=== PATIENT | male | born 1950 | race Caucasian/White ===

== ENCOUNTER 2021-11-01 07:20 | Day surgery (SDC) | payer OTHER ==
[2021-10-25 14:35] LABS: BASOPHILS # (AUTO) 0.1 X10'3 (0-0.2); BASOPHILS % (AUTO) 0.8 % (0-1); EOSINOPHILS # (AUTO) 0.3 X10'3 (0-0.9); EOSINOPHILS % (AUTO) 3.7 % (0-6); LYMPHOCYTES # (AUTO) 1.3 X10'3 (1.1-4.8); LYMPHOCYTES % (AUTO) 14.7 % (21-51); MEAN CORPUSCULAR HEMOGLOBIN 29.9 PG (27.0-31.0); MEAN CORPUSCULAR VOLUME 85.5 FL (78-98); MEAN PLATELET VOLUME 7.8 FL (7.4-10.4); MONOCYTES # (AUTO) 1.2 X10'3 (0-0.9); MONOCYTES % (AUTO) 13.9 % (2-12); NEUTROPHILS # (AUTO) 5.7 X10'3 (1.8-7.7); NEUTROPHILS % (AUTO) 66.9 % (42-75); PRE OP HEMATOCRIT 40.4 % (42.0-52.0); PRE OP HEMOGLOBIN 14.2 g/dL (14.0-17.9); PRE OP PLATELET COUNT 220 X10'3 (140-440); RED BLOOD COUNT 4.73 X10'6 (4.70-6.10)
[2021-10-25 14:53] LABS: ALBUMIN 3.1 G/DL (3.4-5.0); ALBUMIN/GLOBULIN RATIO 0.9 (1.1-1.5); ALKALINE PHOSPHATASE 110 IU/L (46-116); BLOOD UREA NITROGEN 10 MG/DL (7-18); BUN/CREATININE RATIO 13.2 (5.4-32.0); CALCIUM 8.8 MG/DL (8.5-10.1); CHLORIDE 104 MMOL/L (99-107); CREATININE 0.76 MG/DL (0.60-1.10); PRE OP ALT 30 U/L (30-65); PRE OP ANION GAP 6 (8-16); PRE OP AST 14 U/L (10-37); PRE OP BILIRUB, TOTAL 0.5 MG/DL (0.0-1.0); PRE OP GLUCOSE 83 MG/DL (70-104); PRE OP POTASSIUM 3.8 MMOL/L (3.4-5.1); PRE OP SODIUM 139 MMOL/L (135-145); TOTAL CARBON DIOXIDE 29.1 MMOL/L (24-32); TOTAL PROTEIN 6.6 G/DL (6.4-8.2); eGFR > 90 ML/MIN
[2021-11-01] VITALS (16 sets, daily range): BP systolic 97–152; BP diastolic 60–82
[~2021-11-01] VITALS: Ht 172.7 cm; Wt 110.6 kg
[2021-11-01] MEDS: potassium cl 20mEq in 1/2 NS 1,000 ML IV SCH ×2 (07:15→15:15)
[~2021-11-01 07:20] MED LIST: ATOR20TA66 PO; BUPR200T27 PO; CHOL200052 PO; HYDROmorphone 1 mg/ml syringe IV PRN; HYDROmorphone inj. 0.5 MG/0.5 ML DISP.SYRIN IV PRN; LORA10TA7 PO; acetaminophen 325mg tablet PO ONE; acetaminophen 325mg tablet PO PRN; bisacodyl 10mg suppository rectal RC PRN; cefazolin/dext.iso 2gm/50ml IV ONE; celeCOXIB 100mg capsule PO ONE; diphenhydrAMINE 25mg capsule PO PRN; famotidine 20mg tablet PO ONE; gabapentin 300mg capsule PO ONE; magnesium hydroxide 30ml (MOM) UD suspension PO PRN; metoclopramide 5 mg/ml inj IV ONE; ondansetron/PF 4mg/2ml inj IV PRN; oxyCODONE SR 10mg (sust. release) tab -2 tabs (20mg) PO ONE; oxyCODONE/APAP 10/325mg tablet PO PRN; tranexamic acid inj. 0 MG in normal saline 100ml IV soln 100 ML IV ONE; tranexamic acid inj. 1,000 MG in 0.7% saline 100 ML PMX IV ONE; vancomycin 1,500 MG in NS 300ml IV soln IV ONE
[2021-11-01] MEDS: ringers solution, lacted 1,000 ML IV SCH ×2 (08:28→14:39)
[2021-11-01] MEDS ORDERED: LOSA25TA96 PO (08:30)
[2021-11-01] MEDS ORDERED: vancomycin 1,000mg inj ONE (10:52)
[2021-11-01] MEDS ORDERED: cloNIDine hcl/PF 100mcg/ml inj ONE (10:52)
[2021-11-01] MEDS ORDERED: epiNEPHrine 1 mg/ml inj ONE (10:52)
[2021-11-01] MEDS ORDERED: ROPIVAcaine 0.5% (5mg/ml) 30ml vial ONE (10:52)
[2021-11-01] MEDS ORDERED: ketorolac trometh. 30mg/ml inj. ONE (10:52)
[2021-11-01] MEDS ORDERED: MIDAZolam 1 MG/ML 5ML VIAL ONE (11:17)
[2021-11-01] MEDS ORDERED: fentaNYL/PF 50MCG/1 ML 2ML syringe ONE (11:17)
[2021-11-01] MEDS ORDERED: ringers solution, lacted 1,000 ML IV SCH (11:40)
[2021-11-01] MEDS ORDERED: morphine 2 MG/ML inj. syringe IV PRN (11:40)
[2021-11-01] MEDS ORDERED: ondansetron/PF 4mg/2ml inj IV PRN (11:40)
[2021-11-01] MEDS ORDERED: HYDROmorphone/PF 0.2 MG/ML SYRINGE IV PRN ×2 (11:40)
[2021-11-01] MEDS ORDERED: ROPIVAcaine 0.2% (10 MG/5 ML) BOLUS INJECTION ADDCANAL PRN (11:40)
[2021-11-01] MEDS ORDERED: propofol inj 20 ML IV ONE (12:13)
[2021-11-01] MEDS ORDERED: LIDOcaine 1%/PF 5ML 10 MG/ML VIAL ONE (12:13)
[2021-11-01] MEDS ORDERED: ROPIVAcaine 0.2%/PF PUMP/bolus 545 ML ADDCANAL SCH (12:15)
[2021-11-01] MEDS ORDERED: diphenhydrAMINE 50 mg/ml inj ONE (12:21)
--- NOTE | 2021-11-01 13:08 | NUR ---
Received from OR via , accompanied by Anesthesiologist DR SALGADO and report given by Anesthesiolgist. AWAKENS TO VOICE. VITALS STABLE. DRESSING DI. ANTON PAIN. SENSATION AT THE KNEE.
--- NOTE | 2021-11-01 14:08 | NUR ---
Report called to receiving nurse. Transferred via BED Belongings . Special Issues communicated to receiving nurse.AWAKE AND ORIENTED. VITALS STABLE. DRESSING DI. ANTON PAIN. TO SURGICAL RM 340B AT THIS TIME.
[2021-11-01] MEDS: aspirin 325mg tablet PO SCH (15:17)
[2021-11-01] MEDS: atorvastatin 20mg tablet PO SCH (15:17)
[2021-11-01] MEDS: gabapentin 300mg capsule PO SCH ×2 (15:17→20:08)
[2021-11-01] MEDS: loratadine 10mg tablet PO SCH (15:17)
[2021-11-01] MEDS: cefazolin/dext.iso 2gm/50ml 50 ML IV SCH (15:18)
[2021-11-01] MEDS: oxyCODONE/APAP 10/325mg tablet PO PRN ×2 (15:37→16:52)
[2021-11-01] MEDS ORDERED: tranexamic acid inj. 1,000 MG in 0.7% saline 100 ML PMX IV ONE (16:00)
--- NOTE | 2021-11-01 18:32 | NUR ---
Problems reprioritized. Patient report given, questions answered & plan of care reviewed with ANDRA SILVERMAN RN. Addendum: 11/01/21 at 1833 by Thalia Rodriguez RN DISREGARD NOTE, JACK GAMBINO
--- NOTE | 2021-11-01 18:33 | NUR ---
Problems reprioritized. Patient report given, questions answered & plan of care reviewed with ARUNA GAMBINO.
[2021-11-01] MEDS: VANCOMYCIN 1,500MG inj. 1,500 MG in normal saline 500ml IV soln 300 ML IV SCH ×2 (20:09→22:04)
[2021-11-01] MEDS: buPROPion SR 100mg tab PO SCH (20:09)
[2021-11-01] MEDS ORDERED: sennosides 8.6mg tablet PO SCH (21:00)
[2021-11-02] VITALS: BP 128/66
[2021-11-02] MEDS: cefazolin/dext.iso 2gm/50ml 50 ML IV SCH (00:24)
[2021-11-02] MEDS: potassium cl 20mEq in 1/2 NS 1,000 ML IV SCH ×2 (00:49→00:50)
[2021-11-02 04:00] VITALS: BP 127/80
[2021-11-02 05:59] LABS: BASOPHILS % (AUTO) 0.5 % (0-1); EOSINOPHILS # (AUTO) 0.2 X10'3 (0-0.9); EOSINOPHILS % (AUTO) 2.2 % (0-6); HEMATOCRIT 39.6 % (42.0-52.0); HEMOGLOBIN 13.7 g/dl (14.0-17.9); LYMPHOCYTES # (AUTO) 0.7 X10'3 (1.1-4.8); LYMPHOCYTES % (AUTO) 8.5 % (21-51); MEAN CORPUSCULAR HEMOGLOBIN 29.8 PG (27.0-31.0); MEAN CORPUSCULAR HGB CONC 34.6 g/dL (33.0-36.5); MEAN PLATELET VOLUME 7.9 FL (7.4-10.4); MONOCYTES # (AUTO) 1.2 X10'3 (0-0.9); MONOCYTES % (AUTO) 13.9 % (2-12); NEUTROPHILS # (AUTO) 6.6 X10'3 (1.8-7.7); NEUTROPHILS % (AUTO) 74.9 % (42-75); PLATELET COUNT 199 X10'3 (140-440); RED CELL DISTRIBUTION WIDTH 13.8 % (11.5-14.5); WHITE BLOOD COUNT 8.8 X10'3 (4.5-11.0)
[2021-11-02] MEDS: oxyCODONE/APAP 10/325mg tablet PO PRN ×2 (06:00→11:12)
[2021-11-02 06:07] LABS: ANION GAP 8 (8-16); CHLORIDE 104 MMOL/L (99-107); SODIUM 138 MMOL/L (135-145); TOTAL CARBON DIOXIDE 25.9 MMOL/L (24-32)
--- NOTE | 2021-11-02 06:54 | NUR ---
Patient in room [facility]. I have received report from MAKI Jose and had the opportunity to ask questions and assume patient care.
[2021-11-02 07:00] VITALS: BP 143/85
[2021-11-02] MEDS: loratadine 10mg tablet PO SCH (08:00)
[2021-11-02] MEDS: atorvastatin 20mg tablet PO SCH (08:27)
[2021-11-02] MEDS: buPROPion SR 100mg tab PO SCH (08:27)
[2021-11-02] MEDS: gabapentin 300mg capsule PO SCH (08:27)
[2021-11-02] MEDS: aspirin 325mg tablet PO SCH (08:27)
--- NOTE | 2021-11-02 12:24 | NUR ---
Pt discharged to home at 1125, with all belongings, in private vehicle, accompanied by . Discharge instructions and medications reviewed. New prescriptions filled by pt COMPUTER GRAPHICS ILLUSTRATOR, as well as follow up appointment scheduled COMPUTER GRAPHICS ILLUSTRATOR. Education provided regarding OnQ pain ball and ELADIO dressing, with instructions on how and when to remove. Signs and symptoms of infection reviewed with patient, with instructions to contact Dr Talavera office with any concerns. Pt stated understanding and willingness to comply with all discharge instructions. IV DC'd, cannula intact. Pt escorted to front lobby via wheelchair by auxiliary staff.
[2021-11-02] MEDS ORDERED: celeCOXIB 100mg capsule PO SCH (20:00)
== END 2021-11-02 11:25 | disposition home or self-care (01) ==
LOC: PAS 07:20 → SUR 3N 07:21 → PAS 11-02 11:25
PROVIDERS: ATTEND Orthopaedic Surgery
DX: M17.12 Unilateral primary osteoarthritis, left knee (principal); G89.18 Other acute postprocedural pain; I10 Essential (primary) hypertension; F32.9 Major depressive disorder, single episode, unspecified; E66.9 Obesity, unspecified; Z68.37 Body mass index [BMI] 37.0-37.9, adult; Z72.89 Other problems related to lifestyle; Z96.651 Presence of right artificial knee joint; Z79.82 Long term (current) use of aspirin; Z79.899 Other long term (current) drug therapy; Z20.822 Contact with and (suspected) exposure to COVID-19; Z98.41 Cataract extraction status, right eye; Z98.42 Cataract extraction status, left eye; Z90.79 Acquired absence of other genital organ(s); Z98.890 Other specified postprocedural states; Z87.891 Personal history of nicotine dependence; Z85.46 Personal history of malignant neoplasm of prostate; Z82.49 Family history of ischemic heart disease and other diseases of the circulatory system; Z80.9 Family history of malignant neoplasm, unspecified
CPT/HCPCS: 27447; 36415; 64448; 73560; 76937; 80051; 80053; 82948; 85025; 86885; 86900; 86901; 87081; 97110; 97116; 97161; 97530; C1713; C1776; J0171; J0690; J0735; J1170; J1200; J1885; J2250; J2704; J2765; J2795; J3010; J3370; J3480; J3490; J7030; J7040; J7120; U0003; U0005; Z7506; Z7508; Z7512; A4215; A4618; A6449; A6455; A7000; G0378

== ENCOUNTER 2024-10-18 15:53 | Emergency (ER) | payer OTHER, MEDICARE ==
[~2024-10-18] VITALS: Ht 172.7 cm; Wt 112.2 kg
[~2024-10-18 15:53] MED LIST changes: -HYDROmorphone 1 mg/ml syringe IV PRN; -HYDROmorphone inj. 0.5 MG/0.5 ML DISP.SYRIN IV PRN; +LOSA-415 PO; -acetaminophen 325mg tablet PO ONE; -acetaminophen 325mg tablet PO PRN; -bisacodyl 10mg suppository rectal RC PRN; -cefazolin/dext.iso 2gm/50ml IV ONE; -celeCOXIB 100mg capsule PO ONE; -diphenhydrAMINE 25mg capsule PO PRN; -famotidine 20mg tablet PO ONE; -gabapentin 300mg capsule PO ONE; -magnesium hydroxide 30ml (MOM) UD suspension PO PRN; -metoclopramide 5 mg/ml inj IV ONE; -ondansetron/PF 4mg/2ml inj IV PRN; -oxyCODONE SR 10mg (sust. release) tab -2 tabs (20mg) PO ONE; -oxyCODONE/APAP 10/325mg tablet PO PRN; -tranexamic acid inj. 0 MG in normal saline 100ml IV soln 100 ML IV ONE; -tranexamic acid inj. 1,000 MG in 0.7% saline 100 ML PMX IV ONE; -vancomycin 1,500 MG in NS 300ml IV soln IV ONE
[2024-10-18 16:00] VITALS: BP 166/76; PULSE 71; RESP 16; TEMP 98; O2SAT 94
[2024-10-18] MEDS: proparacaine 0.5% ophthalmic drops 15ml EACHEYE ONE (17:38)
[2024-10-18] MEDS ORDERED: OFLO5DRO LEFTEYE (18:13)
[2024-10-18] MEDS ORDERED: KETO5DRO LEFTEYE (18:13)
[2024-10-18] MEDS: ofloxacin 0.33% 5ml ophthalmic drops LEFTEYE STA (19:00)
== END 2024-10-18 19:05 | disposition home or self-care (01) ==
LOC: ER 15:53
DX: S05.02XA Injury of conjunctiva and corneal abrasion without foreign body, left eye, initial encounter (principal); Z79.899 Other long term (current) drug therapy; X58.XXXA Exposure to other specified factors, initial encounter; Y93.89 Activity, other specified; Y92.89 Other specified places as the place of occurrence of the external cause; Y99.8 Other external cause status
CPT/HCPCS: 99283